=== PATIENT | female | born 1995 | race Hispanic/Latino ===

== ENCOUNTER 2018-09-15 22:44 | Emergency (ER) | payer SELFPAY ==
[2018-09-16] MEDS ORDERED: Lidocaine 4% Cream 5 GM TUBE w/ Tegaderm ONE (00:18)
[2018-09-16] MEDS ORDERED: HYDROcodone/Acetaminophen 5/325 mg Tablet ONE (00:40)
[2018-09-16] MEDS ORDERED: Lidocaine 1% (PF) 30 ML VIAL ONE (01:34)
== END 2018-09-16 01:59 | disposition home or self-care (01) ==
LOC: ERS 22:44
DX: N76.4 Abscess of vulva (principal)
CPT/HCPCS: 56405; J2001